=== PATIENT | male | born 1955 | race Caucasian/White ===

== ENCOUNTER → 2018-02-16 10:07 | Outpatient (REF) | payer MEDICARE, SELFPAY ==
[2018-02-16 13:58] LABS: Amphetamine/Metha Screen,Urine Negative ng/mL (<1000); Barbiturates Screen,Urine Negative ng/mL (<200); Benzodiazepines Screen,Urine Negative ng/mL (200); Cannabinoid Screen,Urine Positive ng/mL (<50); Cocaine Screen,Urine Negative ng/g (<300); Methadone Screen,Urine Negative ng/mL (<300); Opiate Screen,Urine Negative ng/mL (<300); Phencyclidine Screen,Urine Negative ng/mL (<25)
== END ==
LOC: LAB 10:07
PROVIDERS: Visit Provider Emergency Medicine
DX: Z79.899 Other long term (current) drug therapy (principal)
CPT/HCPCS: 80305

== ENCOUNTER → 2019-02-23 13:41 | Outpatient (CLI) | payer MEDICARE, SELFPAY ==
[2019-02-23 13:54] LABS: Basophils # 0.1 K/mm3 (0-0.2); Basophils % 1.4 % (0.1-2.0); Eosinophils # 0.4 K/mm3 (0.0-0.4); Eosinophils % 5.1 % (0.1-12.0); Hematocrit 48.8 % (42.0-52.0); Hemoglobin 16.6 g/dL (14.1-18.0); Lymphocytes % 25.2 % (10-50); Mean Corpuscular HGB Conc 33.9 g/dL (31.8-35.4); Mean Corpuscular Hemoglobin 30.4 pg (27.0-31.2); Mean Corpuscular Volume 89.6 fl (80-94); Mean Platelet Volume 7.9 fl (7.4-10.4); Monocytes # 0.4 K/mm3 (0.1-1.0); Monocytes % 5.4 % (1.7-9.3); Neutrophils % 62.9 % (37.0-80.0); Platelet Count 219 K/mm3 (142-424); Red Blood Count 5.45 M/mm3 (4.60-6.20); Red Cell Distribution Width 13.5 % (11.5-17.5); White Blood Count 7.9 K/mm3 (4.8-10.8)
[2019-02-23 14:58] LABS: Alanine Aminotransferase 33 U/L (12-78); Albumin Level 4.2 gm/dL (3.4-5.0); Albumin/Globulin Ratio 1.3 (1.1-1.8); Alkaline Phosphatase 63 U/L (46-116); Anion Gap 15.2 mEq/L (5-15); Aspartate Amino Transferase 9 U/L (15-37); Bilirubin,Total 0.6 mg/dL (0.2-1.0); Blood Urea Nitrogen 26 mg/dL (7-18); Calcium 9.7 mg/dL (8.5-10.1); Carbon Dioxide 28 mmol/L (21.0-32.0); Chloride 102 mmol/L (98-107); Chol/HDL Ratio 6.1 (1-3.5); Cholesterol 214 mg/dL (140-200); Creatinine,Serum 1.22 mg/dL (0.70-1.30); Estimated Glomerular Filt Rate 60 ml/min (>60); GFR (African American) 73 ML/MIN (>60); Globulin 3.3 gm/dl (1.3-3.2); Glucose 95 mg/dL (74-106); HDL Cholesterol 35 mg/dL (27-67); LDL Cholesterol 142 mg/dL (0-130); Potassium 4.2 mmoL/L (3.5-5.1); Sodium 141 mmol/L (136-145); T4 (Thyroxine) 10.7 ug/dl (4.7-13.3); Total Protein,Serum 7.5 gm/dL (6.4-8.2); Triglycerides 183 mg/dL (30-200); VLDL Cholesterol 37 mg/dL (0-40)
[2019-02-23 16:23] LABS: Amphetamine/Metha Screen,Urine Negative ng/mL (<1000); Barbiturates Screen,Urine Negative ng/mL (<200); Benzodiazepines Screen,Urine Negative ng/mL (<200); Cannabinoid Screen,Urine Positive ng/mL (<50); Cocaine Screen,Urine Negative ng/mL (<300); Methadone Screen,Urine Negative ng/mL (<300); Opiate Screen,Urine Negative ng/mL (<300); Phencyclidine Screen,Urine Negative ng/mL (<25)
[2019-02-24 08:20] LABS: PSA, Free 0.27 ng/mL; Prostate Specific Ag 0.7 ng/mL (0.0-4.0); Vitamin D 25 Hydroxy 54.5 ng/mL (30.0-100.0)
[2019-02-25 11:15] LABS: Creatinine, Urine 169.1 mg/dL (Not Estab.); Microalbumin, Urine 26.2 ug/mL (Not Estab.)
== END ==
PROVIDERS: Visit Provider Emergency Medicine
DX: E11.9 Type 2 diabetes mellitus without complications (principal); E78.5 Hyperlipidemia, unspecified; M51.36 Other intervertebral disc degeneration, lumbar region; R97.20 Elevated prostate specific antigen [PSA]; Z79.84 Long term (current) use of oral hypoglycemic drugs; F17.210 Nicotine dependence, cigarettes, uncomplicated
CPT/HCPCS: 80053; 80061; 80305; 82043; 82570; 82652; 83036; 84153; 84154; 84436; 84443; 85025

== ENCOUNTER → 2020-06-18 16:18 | Outpatient (CLI) | payer MEDICARE, SELFPAY ==
[2020-06-18 17:11] LABS: Microalbumin/Creatinine Ratio 29.8
[2020-06-18 17:16] LABS: Creatinine,Urine Random 160 mg/dL (Not Estab.)
[2020-06-18 18:10] LABS: Alanine Aminotransferase 20 U/L (12-78); Albumin Level 4.9 g/dl (3.5-5.0); Albumin/Globulin Ratio 1.8 (1.1-1.8); Alkaline Phosphatase 70 U/L (38-126); Anion Gap 17.2 mEq/L (5-15); Aspartate Amino Transferase 21 U/L (17-59); Bilirubin,Total 0.9 mg/dl (0.2-1.3); Blood Urea Nitrogen 14 mg/dl (9-20); Carbon Dioxide 32 mmol/L (22.0-30.0); Chloride 95 mmol/L (98-107); Estimated Glomerular Filt Rate 75 ml/min (>60); GFR (African American) 91 ML/MIN (>60); Globulin 2.8 g/dL (1.3-3.2); Glucose 105 mg/dl (74-100); Potassium 4.2 mmoL/L (3.5-5.1); Sodium 140 mmol/L (136-145); Total Protein,Serum 7.7 g/dl (6.3-8.2)
== END ==
PROVIDERS: Visit Provider Emergency Medicine
DX: E11.9 Type 2 diabetes mellitus without complications (principal); Z79.84 Long term (current) use of oral hypoglycemic drugs
CPT/HCPCS: 80053; 82043; 82570; 83036

== ENCOUNTER → 2020-10-23 10:01 | Outpatient (CLI) | payer MEDICARE, SELFPAY | PROVIDERS: PCP Emergency Medicine; Visit Provider Urology | DX: E78.5 Hyperlipidemia, unspecified (principal); I10 Essential (primary) hypertension; R00.1 Bradycardia, unspecified; R06.00 Dyspnea, unspecified; Z72.0 Tobacco use | CPT/HCPCS: 93270 ==

== ENCOUNTER → 2021-03-06 13:30 | Outpatient (CLI) | payer MEDICARE, SELFPAY ==
[2021-03-06 13:46] LABS: Basophils # 0.1 K/mm3 (0-0.2); Basophils % 1.7 % (0.1-2.0); Eosinophils # 0.4 K/mm3 (0.0-0.4); Eosinophils % 4.5 % (0.1-12.0); Hematocrit 49.4 % (42.0-52.0); Hemoglobin 16.4 g/dL (14.1-18.0); Lymphocytes # 1.9 K/mm3 (0.7-4.5); Lymphocytes % 22.7 % (10-50); Mean Corpuscular HGB Conc 33.2 g/dL (31.8-35.4); Mean Corpuscular Hemoglobin 30.3 pg (27.0-31.2); Mean Corpuscular Volume 91.4 fl (80-94); Mean Platelet Volume 8.8 fl (7.4-10.4); Monocytes # 0.5 K/mm3 (0.1-1.0); Monocytes % 5.9 % (1.7-9.3); Neutrophils # 5.4 K/mm3 (1.8-7.8); Neutrophils % 65.2 % (37.0-80.0); Platelet Count 229 K/mm3 (142-424); Red Cell Distribution Width 13.9 % (11.5-17.5); White Blood Count 8.3 K/mm3 (4.8-10.8)
[2021-03-06 14:21] LABS: Alanine Aminotransferase 18 U/L (12-78); Albumin Level 4.8 g/dl (3.5-5.0); Albumin/Globulin Ratio 1.8 (1.1-1.8); Alkaline Phosphatase 65 U/L (38-126); Anion Gap 13.2 mEq/L (5-15); Aspartate Amino Transferase 24 U/L (17-59); Bilirubin,Total 0.6 mg/dl (0.2-1.3); Blood Urea Nitrogen 19 mg/dl (9-20); Calcium 9.9 mg/dl (8.4-10.2); Carbon Dioxide 31 mmol/L (22.0-30.0); Chloride 98 mmol/L (98-107); Chol/HDL Ratio 4.7 (1-3.5); Cholesterol 216 mg/dl (140-200); Estimated Glomerular Filt Rate 97 ml/min (>60); GFR (African American) 118 ML/MIN (>60); Globulin 2.6 g/dL (1.3-3.2); Glucose 107 mg/dl (74-100); HDL Cholesterol 46 mg/dl (40-60); Potassium 4.2 mmoL/L (3.5-5.1); Sodium 138 mmol/L (136-145); Total Protein,Serum 7.4 g/dl (6.3-8.2); Triglycerides 90 mg/dl (30-150); VLDL Cholesterol 18 mg/dL (0-40)
[2021-03-06 14:33] LABS: Direct LDL Cholesterol 136.81 mg/dL (100-129)
[2021-03-06 14:38] LABS: Free T4 (Free Thyroxine) 1.39 ng/dl (0.78-2.19)
[2021-03-06 14:53] LABS: Prostate Specific Ag Screen 0.8 ng/ml (0.0-4.0); Thyroid Stimulating Hormone 0.51 uIU/mL (0.465-4.68)
== END ==
PROVIDERS: Visit Provider Emergency Medicine
DX: E11.9 Type 2 diabetes mellitus without complications (principal); Z12.5 Encounter for screening for malignant neoplasm of prostate; Z79.84 Long term (current) use of oral hypoglycemic drugs; Z79.899 Other long term (current) drug therapy
CPT/HCPCS: 80053; 80061; 84439; 84443; 85025; G0103

== ENCOUNTER → 2022-03-20 08:06 | Outpatient (CLI) | payer MEDICARE, OTHER, SELFPAY ==
--- NOTE | 2022-03-20 08:09 | MR_ITS ---
FINAL REPORT CLINICAL HISTORY: neck pain. bilateral arm and hand numbness, pain and tingling. symptoms xyears. no recent injury or trauma. headache. FINDINGS: Multiplanar MR imaging of the cervical spine was performed without contrast. On the sagittal T2-weighted images, disc degeneration is seen throughout. There is no evidence of fracture. There is mild retrolisthesis of C4 on C5. The cervical spinal cord has an unremarkable appearance without evidence of mass, edema or syrinx. No significant canal stenosis is identified. The cervicomedullary junction is normal. C2-3: There is a small central disc protrusion. There is no significant canal stenosis or neural foraminal narrowing. C3-4: There are small uncovertebral osteophytes with a small central disc protrusion. There is no significant canal stenosis or neural foraminal narrowing. C4-5: There is a disc osteophyte complex with mild left neural foraminal narrowing. C5-6: There is a disc osteophyte complex. There is no significant canal stenosis or neural foraminal narrowing. C6-7: There is a disc osteophyte complex. There is no significant canal stenosis or neural foraminal narrowing. C7-T1: There is no significant canal stenosis or neural foraminal narrowing. IMPRESSION: Multilevel degenerative disc disease with mild left C4-C5 neural foraminal narrowing. Disc protrusions at C2-C3 and C3-C4 without significant central canal stenosis. Reviewed, Interpreted and Dictated by Win Pereyra III, MD Transcribed by Anthony Alvarez Authenticated by Win Pereyra III, MD on 03/20/2022 10:20:22 AM [facility]
== END ==
PROVIDERS: PCP Emergency Medicine; Visit Provider Emergency Medicine
DX: M54.2 Cervicalgia (principal)
CPT/HCPCS: 72141; 76376

== ENCOUNTER → 2022-05-07 16:30 | Outpatient (CLI) | payer MEDICARE, OTHER, SELFPAY ==
[2022-05-07 14:03] LABS: Barbiturates Screen,Urine Negative ng/ml (<200)
[2022-05-07 14:04] LABS: Amphetamine/Metha Screen,Urine Negative ng/ml (<1000); Benzodiazepines Screen,Urine Negative ng/ml (<200)
[2022-05-07 14:05] LABS: Methadone Screen,Urine Negative ng/ml (<300)
[2022-05-07 14:06] LABS: Cannabinoid Screen,Urine Positive ng/ml (<50); Cocaine Screen,Urine Negative ng/ml (<300)
[2022-05-07 14:07] LABS: Opiate Screen,Urine Negative ng/ml (<300); Phencyclidine Screen,Urine Negative ng/ml (<25)
== END ==
PROVIDERS: Visit Provider Emergency Medicine
DX: Z79.899 Other long term (current) drug therapy (principal)
CPT/HCPCS: 80305

== ENCOUNTER → 2022-08-06 09:14 | Outpatient (CLI) | payer MEDICARE, OTHER, SELFPAY ==
[2022-08-06 10:16] LABS: Basophils # 0.1 K/mm3 (0-0.2); Basophils % 1.4 % (0.1-2.0); Eosinophils # 0.3 K/mm3 (0.0-0.4); Eosinophils % 3.9 % (0.1-12.0); Hemoglobin 15.9 g/dL (14.1-18.0); Lymphocytes # 1.7 K/mm3 (0.7-4.5); Lymphocytes % 19.8 % (10-50); Mean Corpuscular HGB Conc 31.9 g/dL (31.8-35.4); Mean Corpuscular Hemoglobin 29.9 pg (27.0-31.2); Mean Corpuscular Volume 93.6 fl (80-94); Mean Platelet Volume 8.1 fl (7.4-10.4); Monocytes # 0.4 K/mm3 (0.1-1.0); Monocytes % 4.2 % (1.7-9.3); Neutrophils # 6.1 K/mm3 (1.8-7.8); Neutrophils % 70.8 % (37.0-80.0); Platelet Count 276 K/mm3 (142-424); Red Blood Count 5.34 M/mm3 (4.60-6.20); Red Cell Distribution Width 13.9 % (11.5-17.5); White Blood Count 8.6 K/mm3 (4.8-10.8)
[2022-08-06 10:28] LABS: Alanine Aminotransferase 21 U/L (12-78); Albumin Level 4.3 g/dl (3.5-5.0); Albumin/Globulin Ratio 1.8 (1.1-1.8); Alkaline Phosphatase 70 U/L (38-126); Anion Gap 13.6 mEq/L (5-15); Aspartate Amino Transferase 24 U/L (17-59); Bilirubin,Total 0.4 mg/dl (0.2-1.3); Blood Urea Nitrogen 15 mg/dl (9-20); Calcium 9.2 mg/dl (8.4-10.2); Carbon Dioxide 34 mmol/L (22.0-30.0); Chloride 97 mmol/L (98-107); Chol/HDL Ratio 3.2 (1-3.5); Cholesterol 140 mg/dl (140-200); Estimated Glomerular Filt Rate 84 ml/min (>60); GFR (African American) 102 ML/MIN (>60); Globulin 2.4 g/dL (1.3-3.2); Glucose 129 mg/dl (74-100); HDL Cholesterol 44 mg/dl (40-60); Potassium 4.6 mmoL/L (3.5-5.1); Sodium 140 mmol/L (136-145); Total Protein,Serum 6.7 g/dl (6.3-8.2); Triglycerides 91 mg/dl (30-150); VLDL Cholesterol 18 mg/dL (0-40)
[2022-08-06 10:39] LABS: Direct LDL Cholesterol 80.44 mg/dL (100-129)
[2022-08-06 10:44] LABS: Erythrocyte Sedimentation Rate 8 mm/hr (0-20)
[2022-08-06 10:45] LABS: Free T4 (Free Thyroxine) 1.14 ng/dl (0.78-2.19)
[2022-08-06 10:59] LABS: Prostate Specific Ag Screen 0.7 ng/ml (0.0-4.0); Thyroid Stimulating Hormone 0.62 uIU/mL (0.465-4.68)
[2022-08-06 11:20] LABS: Hemoglobin A1C 6.2 % (4.0-6.0)
[2022-08-06 11:36] LABS: Vitamin B12 798 pg/mL (239-931)
[2022-08-09 18:25] LABS: Antinuclear Antibodies (ANA) Negative
== END ==
PROVIDERS: PCP Emergency Medicine; Visit Provider Specialist
DX: E66.9 Obesity, unspecified (principal); Z79.899 Other long term (current) drug therapy; Z12.5 Encounter for screening for malignant neoplasm of prostate; R41.3 Other amnesia; Z68.29 Body mass index [BMI] 29.0-29.9, adult
CPT/HCPCS: 36415; 80053; 80061; 82607; 82746; 83036; 84439; 84443; 85025; 85651; 86038; G0103

== ENCOUNTER → 2022-08-12 07:23 | Outpatient (CLI) | payer MEDICARE, OTHER, SELFPAY ==
--- NOTE | 2022-08-12 07:31 | MR_ITS ---
FINAL REPORT CLINICAL HISTORY: Memory loss, HEADACHE AND DIZZINESS. NO INJURY OR TRAUMA. FINDINGS: Multiplanar MR imaging of the brain was performed without contrast. There is mild age-appropriate atrophy. There are scattered foci of increased T2 signal in the cerebral white matter that have a nonspecific appearance but likely represent mild chronic ischemic/gliotic changes. There is no evidence of intracranial hemorrhage or mass. No abnormal ventricular dilatation is identified. No abnormal extra-axial fluid collection is seen. No abnormality is seen on the diffusion weighted images. The posterior fossa and brainstem are unremarkable. Normal major vessel vascular flow voids are seen. There is mucosal thickening and multiple sinuses. IMPRESSION: Age-appropriate atrophy and mild chronic ischemic/gliotic changes. No acute intracranial abnormality. Reviewed, Interpreted and Dictated by Win Pereyra III, MD Transcribed by Danielle Ojeda Authenticated and [facility]
== END ==
PROVIDERS: PCP Emergency Medicine; Visit Provider Specialist
DX: R41.3 Other amnesia (principal)
CPT/HCPCS: 70551

== ENCOUNTER → 2022-08-26 10:27 | Outpatient (CLI) | payer MEDICARE, OTHER, SELFPAY | PROVIDERS: PCP Emergency Medicine; Visit Provider Specialist | DX: R06.83 Snoring; G47.30 Sleep apnea, unspecified | CPT/HCPCS: G0399 ==

== ENCOUNTER → 2023-03-02 14:14 | Outpatient (CLI) | payer MEDICARE, OTHER, SELFPAY ==
[2023-03-02 14:19] LABS: Basophils # 0.1 K/mm3 (0-0.2); Eosinophils # 0.4 K/mm3 (0.0-0.4); Eosinophils % 3.5 % (0.1-12.0); Hematocrit 49.7 % (42.0-52.0); Hemoglobin 16.3 g/dL (14.1-18.0); Lymphocytes % 19.9 % (10-50); Mean Corpuscular HGB Conc 32.8 g/dL (31.8-35.4); Mean Corpuscular Volume 94.6 fl (80-94); Mean Platelet Volume 8.7 fl (7.4-10.4); Monocytes # 0.5 K/mm3 (0.1-1.0); Neutrophils # 7.2 K/mm3 (1.8-7.8); Neutrophils % 70.7 % (37.0-80.0); Platelet Count 228 K/mm3 (142-424); Red Blood Count 5.26 M/mm3 (4.60-6.20); Red Cell Distribution Width 13.6 % (11.5-17.5); White Blood Count 10.2 K/mm3 (4.8-10.8)
[2023-03-02 14:30] LABS: Alanine Aminotransferase 23 U/L (12-78); Albumin Level 4.6 g/dl (3.5-5.0); Albumin/Globulin Ratio 1.8 (1.1-1.8); Alkaline Phosphatase 75 U/L (38-126); Anion Gap 13.7 mEq/L (5-15); Aspartate Amino Transferase 25 U/L (17-59); Bilirubin,Total 0.6 mg/dl (0.2-1.3); Blood Urea Nitrogen 17 mg/dl (9-20); Calcium 9.2 mg/dl (8.4-10.2); Carbon Dioxide 32 mmol/L (22.0-30.0); Chloride 100 mmol/L (98-107); Chol/HDL Ratio 2.9 (1-3.5); Cholesterol 142 mg/dl (140-200); Estimated Glomerular Filt Rate 84 ml/min (>60); GFR (African American) 102 ML/MIN (>60); Globulin 2.5 g/dL (1.3-3.2); Glucose 128 mg/dl (74-100); HDL Cholesterol 49 mg/dl (40-60); Potassium 4.7 mmoL/L (3.5-5.1); Sodium 141 mmol/L (136-145); Total Protein,Serum 7.1 g/dl (6.3-8.2); Triglycerides 110 mg/dl (30-150); VLDL Cholesterol 22 mg/dL (0-40)
[2023-03-02 14:41] LABS: Direct LDL Cholesterol 71.93 mg/dL (100-129)
[2023-03-02 14:48] LABS: Free T4 (Free Thyroxine) 1.35 ng/dl (0.78-2.19)
[2023-03-02 15:03] LABS: Thyroid Stimulating Hormone 0.45 uIU/mL (0.465-4.68)
[2023-03-02 15:54] LABS: Hemoglobin A1C 6.3 % (4.0-6.0)
[2023-03-03 12:12] LABS: Testosterone,Total 506 ng/dL (264-916)
== END ==
PROVIDERS: PCP Emergency Medicine; Visit Provider Emergency Medicine
DX: E11.9 Type 2 diabetes mellitus without complications (principal); S30.1XXA Contusion of abdominal wall, initial encounter; Z79.84 Long term (current) use of oral hypoglycemic drugs
CPT/HCPCS: 80053; 80061; 83036; 84403; 84439; 84443; 85025

== ENCOUNTER → 2023-06-30 07:43 | Outpatient (CLI) | payer SELFPAY ==
--- NOTE | 2023-06-30 07:43 | CT_ITS ---
APPROVED REPORT Geophysical Laboratory Supervisor: CLINICAL INDICATION Chest Pain TECHNIQUE Image Acquisition: A 128 slice MDCT scanner (Rock Flow Dynamicsa View) was used for data acquisition. A noncontrast coronary calcium scan was performed. A tube voltage of 120 KVp was used. The patient received no medications prior to the coronary calcium CT. Image Reconstruction Transaxial images were reconstructed at 0.67 mm slide thickness. Data was reviewed interactively on an advanced workstation capable of 2 and 3-dimensional displays in all conventional reconstruction formats, including multiplanar reformations, maximum intensity projections, curved multiplanar reformations, and volume rendered reconstructions. When applicable, selected routine images describing the relevant coronary anatomy and pathology were saved and sent to PACS. Complications None Technical Quality Overall image quality was good. Total DLP (Dose-Length Product) is 179.89 mGy-cm. The reported value represents the total of one or more individual components during the CT acquisition of this date and at this time, and as such, the same value may appear in more than one CT report depending on the interpreting/reporting physicians. COMPARISON None FINDINGS CT Coronary Calcium Scoring LMA (Left Main Artery) = 0 LAD (Left Anterior Descending) = 54 LCX (Left Coronary Circumflex) = 4 RCA (Right Coronary Artery) = 477 Total Calcium Score = 535 using the AJ-130 method. There is identifiable calcification in the aortic root and the mitral annulus of the posterior mitral valve leaflet, but not the aortic valve, mitral valve, pericardium, or myocardium. IMPRESSION -Coronary artery calcification is present. -Total Calcium Score (Agatston Score) = 535 using the AJ-130 method. -According to The Multi-Ethnic Study of Atherosclerosis (BANERJEE) Coronary Artery Calcium (CAC) risk, the estimated probability of a non-zero calcium score for an individual of your ethnicity and age is 78%. The observed calcium score of 535 is at 82 percentile for subjects of the same age, sex, and race/ethnicity who are free of clinical cardiovascular disease and treated diabetes. The interpretation of the calcium heart score is based on the following continuum*: 0 = no calcified plaque detected (risk of coronary artery disease is very low ??? less than 5%) 1-10 = calcium detected in extremely minimal levels (risk of coronary diseases is still low ??? less than 10%) 11-100 = mild levels of plaque detected with certainty (minimal narrowing of heart arteries is likely) 101-300 = moderate levels of plaque detected (relatively high risk of a heart attack within 3-5 years) 300-400 = extensive levels of plaque detected (very high risk of heart attack, high levels of vascular disease are present) *The calcium heart score quantifies the burden of coronary calcification/plaque in the coronary arteries. The calcium heart score is not able to evaluate the presence or burden of non-calcified (i.e. soft) plaque. CRITICAL RESULT None COMMUNICATION Per this written report The coronary and cardiac findings of this Coronary Calcium CT were reviewed, reported, and signed by Shun Gonzalez MD (Grain Mixer). Conclusion Electronically signed by : Ena Gonzalez, 07/01/2023 10:35:42
== END ==
PROVIDERS: PCP Emergency Medicine; Visit Provider Emergency Medicine
DX: Z13.6 Encounter for screening for cardiovascular disorders (principal); R06.00 Dyspnea, unspecified; I10 Essential (primary) hypertension; E11.9 Type 2 diabetes mellitus without complications; E78.5 Hyperlipidemia, unspecified; Z82.49 Family history of ischemic heart disease and other diseases of the circulatory system; Z79.84 Long term (current) use of oral hypoglycemic drugs
CPT/HCPCS: 75571

== ENCOUNTER → 2023-08-24 06:20 | Outpatient (CLI) | payer MEDICARE, OTHER, SELFPAY ==
--- NOTE | 2023-08-24 07:20 | NM_ITS ---
APPROVED REPORT Exam: Nuclear Stress Test Indication: DYSRHYTHMIA, HTN, DM, TOB USE, FM HX, SOB Patient Location: Outpatient Stress Tech: Rachel Sparks [place] Tech:Justine Vences BERNARDINOKym RT (R)(N)(M) Ht: 6 ft 3 in Wt: 218 lbs HR: 60 bpm BP: 166/83 mmHg BSA: 2.28 m2 Rhythm: NSR TID: 1.13 BMI: 27.2 History: DYSRHYTHMIA, HTN, DM, TOB USE, FM HX, SOB Procedure: Patient received 0.4 mg of intravenous Lexiscan, resting heart rate 60 bpm, resting blood pressure 166/83 mmHg, with Lexiscan maximum heart rate achieved was 87 bpm which is % of the maximum predicted heart rate and blood pressure was 165/92 mmHg. With Lexiscan, patient denied any complaint of chest pain. Cardiac Stress and Resting SPECT Images: Cardiac Stress and Resting SPECT images were obtained using technetium 99m Myoview 31.8 mCi stress and 10.46 mCi at rest. Resting and stress imaging in supine and prone positions demonstrate a large sized, moderate, fixed perfusion defect in the inferior, lateral, and inferolateral LV patel of the base and extending towards the inferoapical region. Gated imaging demonstrates moderate reduction in global LV systolic function. There is akinesis of the inferior LV wall. LVEF is calculated at 34%. Conclusion: Large sized, moderate, fixed perfusion defect in the inferior, lateral, and inferolateral LV patel of the base and extending towards the inferoapical region. No evidence of reversible ischemia. Gated imaging demonstrates moderate reduction in global LV systolic function. There is akinesis of the inferior LV wall. LVEF is calculated at 34%. Electronically signed by : Ena Gonzalez MD 08/29/2023 22:34:27
--- NOTE | 2023-08-24 09:38 | CA_ITS ---
APPROVED REPORT Exam: Pharmacologic Technologist: Rachel Sparks Ht: 6 ft 3 in Wt: 225 lbs BSA: 2.31 m2 HR: 60 bpm BP: 166/83 mmHg Indications: Dyspnea Medical History Medications: Amlodipine,,,,, Metformin,,,,, Losartan HCTZ,,,,, Garlic,,,,, OmeGA3,,,,, PEntazocine-Naloxone,,,,, Stress Test Details Test: LEXISCAN HR Resting HR: 59 bpm Max Heart Rate (APMHR): 153 bpm Max HR Achieved: 91 bpm Target HR (85% APMHR): 130 bpm % of APMHR: 59 Recovery HR: 81 bpm BP Resting BP: 166.0/83.0 mmHg Max BP: 166.0/83.0 mmHg Recovery BP: 147.0/83.0 mmHg ECG Resting ECG: Sinus rhythm, nonspecific ST changes in inferior lateral leads Stress ECG: No change Arrhythmia: PVCs Clinical Exercise duration: 04:06 min Highest Stage Achieved: Exercise capacity: 1.0 METs Stress ECG Conclusion Symptoms: Nausea Arrhythmias/Ectopy: PVC's ST-T Changes: No significant ST changes Conclusion: Nondiagnostic Lexiscan stress test due to baseline abnormalities. Myoview images are reported separately. Test Summary REST 14:51 . . 59 . 166/ 83 . . Stage 1 . . . . . . . Myoview Injected Stage 1 01:00 . . 86 . . . . Stage 2 01:00 . . 89 . . . . Stage 3 01:00 . . 83 . 165/ 92 . . Stage 4 01:00 . . 82 . 161/ 95 . . Stage 4 01:06 . . 81 . 161/ 95 . Stop exercise at 04:06 RECOVERY 01:00 . . 75 . 150/ 89 . . RECOVERY 02:00 . . 80 . 147/ 83 . . RECOVERY 02:29 . . 81 . 147/ 83 . . Electronically signed by : Ena Gonzalez MD 08/29/2023 22:31:44
== END ==
PROVIDERS: PCP Emergency Medicine; Visit Provider Nurse Practitioner
DX: R07.9 Chest pain, unspecified (principal); R06.00 Dyspnea, unspecified; E78.5 Hyperlipidemia, unspecified; I10 Essential (primary) hypertension; R00.1 Bradycardia, unspecified; R94.31 Abnormal electrocardiogram [ECG] [EKG]; R93.1 Abnormal findings on diagnostic imaging of heart and coronary circulation; Z72.0 Tobacco use
CPT/HCPCS: 78452; 93017; A9502; J2785

== ENCOUNTER → 2023-09-02 09:25 | Outpatient (CLI) | payer MEDICARE, OTHER, SELFPAY ==
--- NOTE | 2023-09-02 09:28 | CA_ITS ---
APPROVED REPORT EXAM: Comprehensive 2D, Doppler, and color-flow Echocardiogram V Belt Inspector: Desiree Evans RVT Ht: 6 ft 3 in Wt: 225lbs BSA: 2.31 BP: 148/87 mmHg Indications: BRADYCARDIA,SMOKER,HTN,EDEMA,HLD 2D Dimensions LVOT 2.55 cm (M/F) 1.5-2.5 LA Volume 62.70 mL LA Volume Index 27.14 mL/m2 (M/F) 16-34 M-Mode Dimensions RVDd 2.48 cm (0.9-2.6) LA Diam 3.24 cm (1.9-4.0) LVDd 4.75 cm (3.5-5.7) Ao Diam 4.29 cm (2.0-3.7) LVDs 3.47 cm (3.5-5.7) IVSd 1.01 cm (0.6-1.1) PWd 0.70 cm (0.6-1.1) EF (Teich) 52.50% FS 26.90% EDV (Teich) 104.90 mL TAPSE 2.60 (<1.7) ESV (Teich) 49.80 mL LV Diastology E Decel Time 200.00 (160-240 msec) E/A Ratio 0.8 MED E' 5.60 (< 7 cm/sec) E'/MED E' Ratio 13.64 (>14) LAT E' 5.80 (<10 cm/sec) E/LAT E' Ratio 13.17 (>14) Aortic Valve AI PHT 1395.00 ms AO Peak GR. 4.60 mmHg Mitral Valve MV E Max Eduin. 76.00 (40-130 cm/s) MV A Velocity 93.00 (40-130 cm/s) E/A Ratio 0.82 MV Decel. Time 200.00 (160-240 ms) MV PHT 59.00 ms Pulmonary Valve PV Peak Velocity 55.00 (50-150 cm/s) Tricuspid Valve TR P. Velocity 251.00 cm/s RAP Estimate 10.00 mmHg RVSP 35.20 mmHg Left Ventricle The left ventricle is normal size. Left ventricular systolic function is mildly decreased. There is increased LV wall thickness. There is mild global hypokinesis. Transmitral Doppler flow pattern suggests impaired LV relaxation. LVEF is 40-45%. Right Ventricle The right ventricle is mildly dilated. Right ventricle is mildly hypokinetic. There is increased RV wall thickness. Atria The left atrium size is normal. The right atrium size is normal. There is no Doppler evidence of interatrial shunt. Aortic Valve The aortic valve is mildly thickened. There is no aortic valvular stenosis. Mild aortic regurgitation. Mitral Valve The mitral valve leaflets are mildly thickened. No evidence of mitral valve stenosis. Trace mitral regurgitation. Tricuspid Valve The tricuspid valve leaflets are thin and pliable. Trace tricuspid regurgitation. There is insufficient TR jet to estimate RVSP. Pulmonic Valve The pulmonary valve is normal in structure. Trace pulmonic regurgitation. Great Vessels The aortic root is normal in size. The ascending aorta is normal in size. IVC is normal in size and collapses >50% with inspiration. Pericardium There is no pericardial effusion. Other Information Study Quality: Fair Conclusion Mild reduction in LV systolic function (LVEF 40-45%) Mild RV dilation with mild reduction in RV systolic function. Mild AI. Electronically signed by : Ena Gonzalez MD 09/02/2023 21:25:13
== END ==
PROVIDERS: PCP Emergency Medicine; Visit Provider Physician Assistant
DX: E78.5 Hyperlipidemia, unspecified (principal); I10 Essential (primary) hypertension; R00.1 Bradycardia, unspecified; R06.00 Dyspnea, unspecified; R93.1 Abnormal findings on diagnostic imaging of heart and coronary circulation; R94.31 Abnormal electrocardiogram [ECG] [EKG]; Z72.0 Tobacco use
CPT/HCPCS: 93306

== ENCOUNTER 2024-03-09 18:00 | Outpatient (CLI) | payer MEDICARE, OTHER, SELFPAY ==
[2024-03-09 19:03] LABS: Basophils # 0.1 K/mm3 (0-0.2); Basophils % 1.2 % (0.1-2.0); Eosinophils # 0.3 K/mm3 (0.0-0.4); Eosinophils % 3.2 % (0.1-12.0); Hematocrit 52.3 % (42.0-52.0); Hemoglobin 16.8 g/dL (14.1-18.0); Lymphocytes # 1.7 K/mm3 (0.7-4.5); Lymphocytes % 22.6 % (10-50); Mean Corpuscular HGB Conc 32.1 g/dL (31.8-35.4); Mean Corpuscular Hemoglobin 31.1 pg (27.0-31.2); Mean Corpuscular Volume 96.8 fl (80-94); Mean Platelet Volume 9.4 fl (7.4-10.4); Monocytes # 0.4 K/mm3 (0.1-1.0); Monocytes % 4.7 % (1.7-9.3); Neutrophils # 5.3 K/mm3 (1.8-7.8); Neutrophils % 68.3 % (37.0-80.0); Platelet Count 189 K/mm3 (142-424); Red Blood Count 5.41 M/mm3 (4.60-6.20); Red Cell Distribution Width 14.2 % (11.5-17.5); White Blood Count 7.7 K/mm3 (4.8-10.8)
[2024-03-09 19:47] LABS: 25-OH Vitamin D, Total 65.2 ng/mL (30-100)
[2024-03-09 19:49] LABS: Alanine Aminotransferase 23 U/L (12-78); Albumin Level 4.6 g/dl (3.5-5.0); Albumin/Globulin Ratio 1.8 (1.1-1.8); Alkaline Phosphatase 78 U/L (38-126); Aspartate Amino Transferase 25 U/L (17-59); Bilirubin,Total 0.9 mg/dl (0.2-1.3); Blood Urea Nitrogen 13 mg/dl (9-20); Calcium 9.8 mg/dl (8.4-10.2); Carbon Dioxide 31 mmol/L (22.0-30.0); Chloride 101 mmol/L (98-107); Chol/HDL Ratio 3.7 (1-3.5); Cholesterol 219 mg/dl (140-200); Estimated Glomerular Filt Rate 96 ml/min (>60); GFR (African American) 117 ML/MIN (>60); Globulin 2.6 g/dL (1.3-3.2); Glucose 115 mg/dl (74-100); HDL Cholesterol 60 mg/dl (40-60); Sodium 140 mmol/L (136-145); Total Protein,Serum 7.2 g/dl (6.3-8.2); Triglycerides 125 mg/dl (30-150); VLDL Cholesterol 25 mg/dL (0-40)
[2024-03-09 20:02] LABS: Direct LDL Cholesterol 133.94 mg/dL (100-129)
[2024-03-09 20:20] LABS: Hemoglobin A1C 6.6 % (4.0-6.0)
[2024-03-09 20:21] LABS: Prostate Specific Ag Screen 0.8 ng/ml (0.0-4.0); Thyroid Stimulating Hormone 0.73 uIU/mL (0.465-4.68)
[2024-03-09 20:40] LABS: Vitamin B12 717 pg/mL (239-931)
== END 2024-03-09 23:59 | disposition home or self-care (01) ==
LOC: LAB.DROPOF 03-10 08:44
PROVIDERS: PCP Internal Medicine; Visit Provider Internal Medicine
DX: R53.83 Other fatigue (principal); E78.5 Hyperlipidemia, unspecified; E55.9 Vitamin D deficiency, unspecified; E53.8 Deficiency of other specified B group vitamins; R73.09 Other abnormal glucose; Z12.5 Encounter for screening for malignant neoplasm of prostate; Z68.28 Body mass index [BMI] 28.0-28.9, adult
CPT/HCPCS: 80053; 80061; 82306; 82607; 83036; 84443; 85025; G0103

== ENCOUNTER 2024-04-05 19:06 | Outpatient (CLI) | payer MEDICARE, OTHER, SELFPAY ==
[2024-04-05 19:57] LABS: Creatinine,Urine Random 86 mg/dL (Not Estab.)
== END 2024-04-05 23:59 | disposition home or self-care (01) ==
LOC: LAB.DROPOF 19:21
PROVIDERS: PCP Internal Medicine; Visit Provider Internal Medicine
DX: E11.42 Type 2 diabetes mellitus with diabetic polyneuropathy (principal); Z79.899 Other long term (current) drug therapy
CPT/HCPCS: 82043; 82570

== ENCOUNTER 2025-02-28 10:09 | Outpatient (CLI) | payer MEDICARE, OTHER, SELFPAY ==
[2025-02-28 18:48] LABS: Basophils # 0.1 K/mm3 (0-0.2); Basophils % 1.2 % (0.1-2.0); Eosinophils # 0.2 Kmm3 (0.0-0.4); Eosinophils % 2.3 % (0.1-12.0); Hematocrit 50.1 % (42.0-52.0); Hemoglobin 17.3 g/dL (14.1-18.0); Lymphocytes # 1.7 K/mm3 (0.7-4.5); Lymphocytes % 19.6 % (10-50); Mean Corpuscular HGB Conc 34.5 g/dL (31.8-35.4); Mean Corpuscular Hemoglobin 31.3 pg (27.0-31.2); Mean Corpuscular Volume 90.6 fl (80-94); Mean Platelet Volume 9.3 fl (7.4-10.4); Monocytes # 0.5 K/mm3 (0.1-1.0); Neutrophils # 6.1 K/mm3 (1.8-7.8); Neutrophils % 70.6 % (37.0-80.0); Nucleated Red Blood Cells # 0 10^3/uL; Nucleated Red Blood Cells % 0 %; Platelet Count 272 K/mm3 (142-424); Red Blood Count 5.53 M/mm3 (4.60-6.20); Red Cell Distribution Width 13.2 % (11.5-17.5); Red Cell Distribution Width-SD 43.8 fL; White Blood Count 8.7 K/mm3 (4.8-10.8)
[2025-02-28 21:20] LABS: Albumin Level 4.6 g/dl (3.5-5.0); Chloride 98 mmol/L (98-107); Potassium 4.2 mmoL/L (3.5-5.1); Sodium 138 mmol/L (136-145)
[2025-02-28 21:23] LABS: Alanine Aminotransferase 23 U/L (12-78); Albumin/Globulin Ratio 1.6 (1.1-1.8); Alkaline Phosphatase 90 U/L (38-126); Anion Gap 14.2 mEq/L (5-15); Aspartate Amino Transferase 26 U/L (17-59); Bilirubin,Total 0.6 mg/dl (0.2-1.3); Blood Urea Nitrogen 12 mg/dl (9-20); Calcium 9.6 mg/dl (8.4-10.2); Carbon Dioxide 30 mmol/L (22.0-30.0); Chol/HDL Ratio 4.2 (1-3.5); Cholesterol 216 mg/dl (140-200); Estimated Glomerular Filt Rate 84 ml/min (>60); GFR (African American) 102 ML/MIN (>60); Globulin 2.9 g/dL (1.3-3.2); Glucose 128 mg/dl (74-100); HDL Cholesterol 51 mg/dl (40-60); Total Protein,Serum 7.5 g/dl (6.3-8.2); Triglycerides 155 mg/dl (30-150); VLDL Cholesterol 31 mg/dL (0-40)
[2025-02-28 21:35] LABS: Direct LDL Cholesterol 124.05 mg/dL (100-129)
[2025-02-28 21:36] LABS: Creatinine,Urine Random 85 mg/dL (Not Estab.); Microalbumin/Creatinine Ratio 20.2
[2025-02-28 21:37] LABS: 25-OH Vitamin D, Total 108 ng/mL (30-100)
[2025-02-28 21:48] LABS: Thyroid Stimulating Hormone 0.47 uIU/mL (0.465-4.68)
[2025-02-28 22:05] LABS: Hepatitis C Ab Qual. W/ RFX NEGATIVE (Negative)
[2025-02-28 23:36] LABS: Hemoglobin A1C 6.4 % (4.0-6.0)
[2025-03-02 11:06] LABS: HIV Combo NEGATIVE (Negative)
== END 2025-02-28 23:59 | disposition home or self-care (01) ==
LOC: LAB.DROPOF 03-01 10:00
PROVIDERS: PCP Nurse Practitioner Family; Visit Provider Nurse Practitioner Family
DX: E11.42 Type 2 diabetes mellitus with diabetic polyneuropathy (principal); E55.9 Vitamin D deficiency, unspecified; Z11.59 Encounter for screening for other viral diseases
CPT/HCPCS: 80053; 80061; 82043; 82306; 82570; 83036; 84443; 85025; 86803; 87389

== ENCOUNTER 2025-09-18 16:43 | Outpatient (CLI) | payer MEDICARE, OTHER, SELFPAY ==
--- OUTSIDE RECORDS SUMMARY | 2024-07-28 04:45 | XMS_ITS ---
Author Organization [facility] Address [address] [place] [address] Care Team Providers Care Publications Manager Name Role Phone Ruth Milner Unavailable [phone] REASON FOR VISIT 3mo ak Encounters Encounter Location Date Provider Diagnosis [facility] [address] [address] 07/28/2024 Ruth Milner Plan Of Treatment No Information Progress Notes * Nir KRAUSEDOB: [birth year] (70 yo M)Acc No.[id number]:07/28/2024 Progress Notes Patient: Nir Tom Provider: Alexandra Milner PA-C :1955 A ge:69 Y S ex:Male Date:07/28/2024 Address:[id number] [place] [address], [id number] Patient's Default Facility:[facility] Subjective: * Chief Complaints: * 3 mo ak Billing Information: * Procedure Codes: * Electronic signature of Renate Milner PA-C on 09/19/2025 at 03:46 PM MARKETING TECHNOLOGY SPECIALIST Sign off status: Pending * Provider: Alexandra Milner PA-C Date: 0 07/28/2024 Generated for Printi ng/Faxing/eTransmitting on: 1 11/19/2024 03:46 PM MARKETING TECHNOLOGY SPECIALIST
--- OUTSIDE RECORDS SUMMARY | 2024-08-16 04:00 | XMS_ITS ---
Author Organization [facility] Address [address] [place] [address] Care Team Providers Care Padding Machine Operator Name Role Phone Ruth iMlner Unavailable [phone] REASON FOR VISIT pdt Medications Medication SIG (Take, Route, Fr equency, Duration) Notes Start Date End Date Status amLODIPine Active losartan Active chlorthalidone Activ e urea topical 40% cream 1 jennifer applied top ically to arms and scalp once a day; Duration: 30 days 04/20/2024 Active Encounters Encounter Location Date Provider Diagnosis [facility] [address] [address] 08/16/2024 Ruth Milner Plan Of Treatment No Information Progress Notes * Nir KRAUSEDOB: [birth year] (70 yo M)Acc No.[id number]:08/16/2024 Patient: Stephanie Nir serna Provider: Alexandra Milner PA-C :1955 A ge:69 Y S ex:Male Date:08/16/2024 Address: [facility] [facility] [address], [place], [place] Patient's Default Facility:[facility] Subjective: * Chief Complaints: * P dt * Medications: T akingchlorthalidone losartan amLODIPine urea topical 40% cream 1 jennifer applied topically to arms and scalp once a day Taking chlorthalidone Taking losartan Taking amLODIPine Taking urea topical 40% cream 1 jennifer applied topically to arms and scalp once a day Billing Information: * Procedure Codes: * Electronic signature of Renate Milner PA-C on 09/19/2025 at 03:46 PM SPORTS MEDICINE MASSEUR Sign off status: Pending * Provider: Alexandra Milner PA-C Date: Generated for Sofy griggs/Ashley/Jh on: 11/19/2024 03:46 PM SPORTS MEDICINE MASSEUR
--- OUTSIDE RECORDS SUMMARY | 2024-10-20 04:30 | XMS_ITS ---
Author Organization [facility] Address [address] [place] [address] Care Team Providers Care Insulation Hoseman Name Role Phone Ruth Milner Unavailable [phone] REASON FOR VISIT 6mo efudex Encounters Encounter Location Date Provider Diagnosis [facility] [address] [address] 10/20/2024 Ruth Milner Plan Of Treatment No Information Progress Notes * Nir KRAUSEDOB: [birth year] (70 yo M)Acc No.[id number]:10/20/2024 Progress Notes Patient: Nir Tom Provider: Alexandra Milner PA-C :1955 A ge:69 Y S ex:Male Date:10/20/2024 Address: [id number] Patient's Default Facility:[facility] Subjective: * Chief Complaints: * 6 mo efudex Billing Information: * Procedure Codes: * Electronic signature of Renate Milner PA-C on 09/19/2025 at 03:46 PM STRUCTURAL WORKER Sign off status: Pending * Provider: Alexandra Milner PA-C Date: 12/21/2023 Generated for Robinai ng/Faxing/eTransmitting on: 11/19/2024 03:46 PM STRUCTURAL WORKER
--- OUTSIDE RECORDS SUMMARY | 2024-11-30 04:30 | XMS_ITS ---
Author Organization [facility] Address [address] [place] [address] Care Team Providers Care Bath House Attendant Name Role Phone AlfRuth Unavailable [phone] Mahesh Rosario Unavailable [phone] REASON FOR VISIT 1 wk innova f/u Encounters Encounter Location Date Provider Diagnosis [facility] [address] [address] 11/30/2024 Mahesh Rosario Plan Of Treatment No Information Progress Notes * Nir KRAUSEDOB: [birth year] (70 yo M)Acc No.[id number]:11/30/2024 Progress Notes Patient: Nir Tom Provider: Juan Rosario MD :1955 A ge:69 Y S ex:Male Date:11/30/2024 Address: [facility] [id number] Patient's Default Facility:[facility] Subjective: * Chief Complaints: * 1 wk innova f/u Billing Information: * Procedure Codes: * Electronic signature of Mahesh Rosario MD on 09/19/2025 at 03:47 PM SPLITTING MACHINE TENDER Sign off status: Pending * Provider: Juan Rosario MD Date: 0 11/30/2024 Generated for Printi ng/Faloraineg/eTransmitting on: 1 11/19/2024 03:47 PM SPLITTING MACHINE TENDER
--- OUTSIDE RECORDS SUMMARY | 2025-04-25 04:30 | XMS_ITS ---
Author Organization [facility] Address [address] [place] [address] Care Team Providers Care Social Work Manager Name Role Phone AlfRuth Unavailable [phone] Mahesh Rosario Unavailable [phone] REASON FOR VISIT left frontal scalp Inv SCC, wd Encounters Encounter Location Date Provider Diagnosis [facility] [address] [address] 04/25/2025 Mahesh Rosario Plan Of Treatment No Information Progress Notes * Nir KRAUSEDOB: [birth year] (70 yo M)Acc No.[id number]:04/25/2025 Patient: Stephanie serna Nir Provider: Juan Rosario MD :1955 A ge:69 Y S ex:Male Date:04/25/2025 Address: [facility] [address], [id number] Patient's Default Facility:[facility] Billing Information: * Procedure Codes: * Electronic signature of Mahesh Rosario MD on 09/19/2025 at 03:46 PM EMR IMPLEMENTATION SPECIALIST Sign off status: Pending * Provider: Juan Rosario MD Date: 0 04/25/2025 Generated for Printi ng/Faxing/eTransmitting on: 1 11/19/2024 03:46 PM EMR IMPLEMENTATION SPECIALIST
--- OUTSIDE RECORDS SUMMARY | 2025-04-26 04:30 | XMS_ITS ---
Author Organization [facility] Address [address] [place] [address] Care Team Providers Care Stock Shipper Name Role Phone AlfRuth dooley Unavailable [phone] Mahesh Rosario Unavailable [phone] REASON FOR VISIT left zygoma Encounters Encounter Location Date Provider Diagnosis [facility] [address] [place] [address] 04/26/2025 Mahesh Rosario Plan Of Treatment No Information Progress Notes * Nir KRAUSEDOB: [birth year] (70 yo M)Acc No.[id number]:04/26/2025 Patient: Stephanie hernandezNir shook Provider: Juan Rosario MD :1955 A ge:69 Y S ex:Male Date:04/26/2025 Address: [id number] Patient's Default Facility:[facility] Billing Information: * Procedure Codes: * Electronic signature of Mahesh Rosario MD on 09/19/2025 at 03:46 PM CIRCUIT RIDER Sign off status: Pending * Provider: Juan Rosario MD Date: 0 04/26/2025 Generated for Printi ng/Faxing/eTransmitting on: 1 11/19/2024 03:46 PM CIRCUIT RIDER
--- OUTSIDE RECORDS SUMMARY | 2025-05-02 04:30 | XMS_ITS ---
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 back) Encounters Encounter Location Date Provider Diagnosis [facility] [address] [place] [address] 05/02/2025 Mahesh Rosario Plan Of Treatment No Information Progress Notes * Nir KRAUSEDOB: [birth year] (70 yo M)Acc No.[id number]:05/02/2025 Patient: Stephanie hernandezNir shook Provider: Juan Rosario MD :1955 A ge:69 Y S ex:Male Date:05/02/2025 Address: [facility] [address], [id number] Patient's Default Facility:[facility] * Electronic signature of Mahesh Rosario MD on 09/19/2025 at 03:46 PM TYING MACHINE OPERATOR LUMBER Sign off status: Pending * Provider: Juan Rosario MD Date: 0 05/02/2025 Generated for Printi ng/Faxing/eTransmitting on: 1 11/19/2024 03:46 PM TYING MACHINE OPERATOR LUMBER
[2025-09-18 16:08] LABS: Hematocrit 49.6 % (42.0-52.0); Hemoglobin 16.5 g/dL (14.1-18.0); Immature Granulocytes % 0.2 %; Mean Corpuscular HGB Conc 33.3 g/dL (31.8-35.4); Mean Corpuscular Hemoglobin 29.8 pg (27.0-31.2); Mean Corpuscular Volume 89.7 fl (80-94); Nucleated Red Blood Cells % 0 %; Platelet Count 245 K/mm3 (142-424); Red Blood Count 5.53 M/mm3 (4.60-6.20); Red Cell Distribution Width-SD 45.2 fL; White Blood Count 8.0 K/mm3 (4.8-10.8)
[2025-09-18 18:27] LABS: Alanine Aminotransferase 24 U/L (12-78); Albumin Level 4.6 g/dl (3.5-5.0); Albumin/Globulin Ratio 1.5 (1.1-1.8); Alkaline Phosphatase 79 U/L (38-126); Anion Gap 12.1 mEq/L (5-15); Aspartate Amino Transferase 23 U/L (17-59); Bilirubin,Total 0.7 mg/dl (0.2-1.3); Blood Urea Nitrogen 18 mg/dl (9-20); Calcium 10.1 mg/dl (8.4-10.2); Carbon Dioxide 28 mmol/L (22.0-30.0); Chloride 97 mmol/L (98-107); Cholesterol 221 mg/dl (140-200); Creatinine,Serum 1.00 mg/dl (0.66-1.25); Estimated Glomerular Filt Rate 74 ml/min (>60); GFR (African American) 90 ML/MIN (>60); Globulin 3.1 g/dL (1.3-3.2); Glucose 129 mg/dl (74-100); HDL Cholesterol 57 mg/dl (40-60); Potassium 4.1 mmoL/L (3.5-5.1); Sodium 133 mmol/L (136-145); Total Protein,Serum 7.7 g/dl (6.3-8.2); Triglycerides 134 mg/dl (30-150)
--- OUTSIDE RECORDS SUMMARY | 2025-09-19 16:45 | XMS_ITS | Encounter Summary ---
Author Organization [place] [address] Care Team Providers Care Cloth Spreader Name Role Phone Roderick Dela Cruz MD Unavailable Unavailable Sharan Hardwick MD Primary Care Provider [phone] Encounter Details Date Type Department Care Team (Late st Contact Info) Description 05/04/2009 Orders Only [facility] [place] [address] [place] [address] Uday Negron MD [address] [place] [address] Social History Tobacco Use Types Packs/Day Years Used Date Smoking Tobacco: Never Assessed Sex and Gender Information Value Date Recorded Sex Assigned at Not on file Legal Sex Male 6:29 AM EDT Gender Identity Not on file Sexual Orientation Not on file documented as of this encounter Plan of Treatment Not on file documented as of this encounter Procedures Procedure Name Priority Date/Time Associated Diagnosis Comments NM CARDIOLOGY - HISTORICAL Routine 05/04/2009 12:00 AM EDT documented in this encounter Results * NM CARDIOLOGY - HISTORICAL (05/04/2009 12:00 AM EDT) Anatomical Region Laterality Modality Other 05/04/2009 Narrative 11/12/2011 12:55 PM EST NOTICE: This report was electronically copied on 12/26/2011 from historical data generated by a practice prior to that practice using [facility] for Medical Records. Performing Provider: NEGRON us Uday Negron MD IMG ECHO ORDERABLES Final Result documented in this encounter Visit Diagnoses Not on filedocumented in this encounter Care Teams Cloth Spreader Relationship Specialty Start Date End Date Sharan Hardwick MD [address] [place] [address] [place] [address] PCP - General Internal Medicine 12/07/12 Roderick Dela Cruz MD Physician Internal Medicine-Cardiovascular Disease 05/11/12 documented as of this encounter
--- OUTSIDE RECORDS SUMMARY | 2025-09-19 16:45 | XMS_ITS | Patient Health Record ---
Author Organization [facility] Address [address] [place] [address] Care Team Providers Care Registration Clerk Name Role Phone Ruth Milner Unavailable [phone] Mahesh Rosario Unavailable [phone] Nancy Huerta Unavailable [phone] Allergies No Known Allergies Results Component Value Reference Range Notes Dermatopathology: Kenton horner In-House Histology Lab Reviewed date:10/11/2024 08:20:24 AM Interpretation:Abnormal Performing Lab: Notes/Report: Abnormal Reason For Referral No Information Medications Medication SIG (Take, Route, Fr equency, Duration) Notes Start Date End Date Status urea topical 40% cream 1 jennifer applied top ically to arms and scalp once a day; Duration: 30 days 04/20/2024 Active losartan Active amLODIPine Active chlorthalidone Activ e Social History Tobacco Use: Social History Observation Description Date Details (start date - stop date) Current Smoker NA - NA Social History Drug/Alcohol: Social Info Question Answer Notes AUDIT-C (Standard) Did you have a drink containing alcohol in the past year? Yes How often did you have six or more drinks on one occasion in the past year? 2 to 4 times a month (2 points) How many drinks did you have on a typical day when you were drinking in the past year? 1 or 2 drinks (0 point) How often did you have a drink containing alcohol in the past year? 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, soft tissue, 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 Problem Lentigo (091444402) Lentigo (L81.4) Active confirmed Problem Seborrheic keratosis (88137679) Seborrheic keratosis (L82.1) Active confirmed Problem Eruptive melanocytic nevi (430248548) Benign nevus of skin (D22.9) Active confirmed Problem Vital angioma (4145006) Vital angioma (D18.01) Active confirmed Encounters Encounter Location Date Provider Diagnosis [facility] [address] [address] 09/27/2024 Nancy Huerta Neoplasm of unspecified behavior of bone, soft tissue, and skin D49.2 and Actinic keratosis L57.0 [facility] [address] [address] 11/22/2024 Mahesh [facility] [address] [place] [phone] 10/14/2024 Mahesh Rosario [facility] [address] [address] 11/11/2024 Ruth Milner [facility] [address] [address] 12/06/2024 Mahesh Rosario [facility] [employer] [address] [place] [address] 04/24/2025 Mahesh Rosario Assessments Encounter Date Diagnosis (ICD Code) Assessment Notes Treatment Notes Treatment Clinical Notes Section Notes 09/27/2024 Neoplasm of unspecified behavior of bone, soft tissue, and skin (ICD-10 - D49.2) Undiagnosed new problem with uncertain prognosis. The risks, benefits and potential complications were discussed. Discussed with patient the biopsy process, in that there is an initial stick followed by a burning sensation that subsides with numbness in 5-10 seconds. Patient understands Patient deny any allergy to local anesthesia and consent to the procedure. Results will be available in approximately 2 weeks, however they understand some studies may delay the final report 09/27/2024 Actinic keratosis (ICD-10 - L57.0) Explained that actinic keratoses are precancerous and may have the potential to develop into a malignancy. LN2 was performed to the site(s). After treatment the site may become red and inflamed and then turn a dark brown color and then should peel off in 12 to 14 days. Patient should monitor the areas and return to clinic if the area does not resolve with treatment, or returns, continues to grow, scale, scab or bleed. Acute problem with potential worsening disease progression Plan Of Treatment No Information Insurance Providers Payer Name Payer Address Payer Phone Subscriber Number Group Number Insured Name Patient Relationship to Insured Coverage Start Date Coverage End Date [place] [address] [address] [place] [address] [id number] Nir Sanches Self - patient is the insured [facility] [address] [place] [id number] Nir Sanches Self - patient is the insured Medical (General) History Surgical History Surgery Date(Month/Year) parathyroid lower back 83, 86, 96
--- OUTSIDE RECORDS SUMMARY | 2025-09-19 16:45 | XMS_ITS | Encounter Summary ---
Author Organization [facility] [address] Care Team Providers Care Program Development Manager Name Role Phone Roderick Dela Cruz MD Unavailable Unavailable Sharan Hardwick MD Primary Care Provider [phone] Encounter Details Date Type Department Care Team (Late st Contact Info) Description 05/04/2009 Orders Only [facility] [address] [place] [address] Uday Negron MD [address] [place] [address] Social History Tobacco Use Types [...] Procedure Name Priority Date/Time Associated Diagnosis Comments ECHO - HISTORICAL Routine 05/04/2009 12: 00 AM EDT documented in this encounter Results * ECHO - HISTORICAL (05/04/2009 12:00 AM EDT) Anatomical Region Laterality Modality Other 05/04/2009 Narrative 11/12/2011 12:55 PM EST NOTICE: This report was electronically copied on 12/26/2011 from historical data generated by a practice prior to that practice using [facility] for Medical Records. Performing Provider: NEGRON us Uday Negron MD IMG ECHO ORDERABLES Final Result documented in this encounter Visit Diagnoses Not on filedocumented in this encounter Care Teams Program Development Manager Relationship Specialty Start Date End Date Sharan Hardwick MD [address] [place] [address] [place] [address] PCP - General Internal Medicine 12/07/12 Roderick Dela Cruz MD Physician Internal Medicine-Cardiovascular Disease 05/11/12 documented as of this encounter
--- OUTSIDE RECORDS SUMMARY | 2025-09-19 16:46 | XMS_ITS | Clinical Summary ---
Author Organization [facility] Address [address] [place] [address] Phone Care Team Providers Care Tooth Polisher Name Role Phone Roderick Dela Cruz MD Unavailable Unavailable Sharan Hardwick MD Primary Care Provider [phone] Allergies Active Allergy Reactions Criticality Noted Date Comments Jignesh Inhibitors 06/02/2012 Jignesh induced cough Beta-Blockers (Beta-Adrenergic Blocking Agts) 06/02/2012 Secondary to Bradycardia Medications Carson-3 Fatty Acids-Vitamin E (FISH OIL) 1,000 mg Cap Take by mouth daily. Active Garlic 1 mg Cap Take by mouth. Active selenium 200 mcg Cap Take by mouth. Active Coenzyme Q10 100 mg Cap Take by mouth. Active Cholecalciferol, Vitamin D3, 2,000 unit Cap Take by mouth. Active oxyCODONE (OXY-IR) 30 mg immediate release tablet Take 30 mg by mouth 3 times daily. Active pravastatin (PRAVACHOL) 20 mg Take 20 mg by mouth nightly. Active doxazosin (CARDURA) 8 mg tabletIndication s:HTN (hypertension) Take 1 Tab by mouth daily. 30 Tab 6 12/07/2012 Active cyclobenzaprine (FLEXERIL) 10 mg tablet Take by mouth 2 times daily. Active fluticasone (FLONASE) 50 mcg/actuation nasal spray by Nasal route. Active venlafaxine (EFFEXOR-XR) 150 mg XR capsule Take by mouth daily. Active losartan-hydroch lorothiazide (HYZAAR) 100-25 mg per tablet TAKE ONE TABLET BY MOUTH EVERY DAY Rfs rem none 30 Tab 3 09/22/2013 Active amLODIPine (NORVASC) 10 mg tablet TAKE ONE TABLET BY MOUTH EVERY DAY Rfs rem none 30 Tab 3 09/22/2013 Active Active Problems Problem Noted Date Diagnosed Date Bradycardia 06/02/2012 Hyperlipemia 06/02/2012 HTN (hypertension) 06/02/2012 Social History Tobacco Use Types Packs/Day Years Used Date Smoking Tobacco: Former Alcohol Use Standard Drinks/Week Comments Yes 0 (1 standard drink = 0.6 oz pur e alcohol) occ Sex and Gender Information Value Date Recorded Sex Assigned at Not on file Legal Sex Male 6:29 AM EDT Gender Identity Not on file Sexual Orientation Not on file Last Filed Vital Signs Vital Sign Reading Time Taken Comments Blood Pressure 101/69 06/07/2013 10:16 AM EDT Pulse 114 06/07/2013 10:16 AM EDT Temperature - - Respiratory Rate - - Oxygen Saturation - - Inhaled Oxygen Concentration - - Weight 123.4 kg (272 lb) 06/07/2013 10:16 AM EDT Height 188 cm (6' 2 ) 06/07/2013 10:16 AM EDT Body Mass Index 34.92 06/07/2013 10:16 AM EDT Plan of Treatment Health Maintenance Due Date Last Done Comments Wellness Exam Medicare 1958 Hepatitis C Screening 1974 DTaP/TDaP/Td (1 - Tdap) 1975 Cologuard 2001 Colon Cancer Screening 2001 Colonoscopy 2001 FIT 2001 Sigmoidoscopy 2001 Virtual Colonography 2001 Pneumococcal Vaccine 50+ (1 of 1 - PCV) 2006 Zoster (1 of 2) 2006 COVID-19 Vaccine ( - 2024-2 6 season) 2025 Influenza Vaccine (#1) 2025 Hepatitis B Vaccine Aged Out No longe r eligible based on patient's age to complete this topic Meningococcal B Vaccine Aged Out No l onger eligible based on patient's age to complete this topic Insurance [id number] [place] [address] [place] B [place] Care Teams Tooth Polisher Relationship Specialty Start Date End Date Sharan Hardwick MD [address] [place] [address] [address] [place] [address] PCP - General Internal Medicine 12/07/12 Roderick Dela Cruz MD Physician Internal Medicine-Cardiovascular Disease 05/11/12
--- OUTSIDE RECORDS SUMMARY | 2025-09-19 16:46 | XMS_ITS | Clinical Summary ---
Author Organization [facility] Address [address] [place] [address] Care Team Providers Care Armored Vehicle Officer Name Role Phone CaitlinClarissa metz Primary Care Provider Allergies No known active allergies Medications atenolol (TENORMIN) 100 MG tablet 7 Active losartan-hydrochlor othiazide (HYZAAR) 100-25 MG per tablet 7 Active amLODIPine (NORVASC) 10 MG tablet 7 Active metFORMIN (GLUCOPHAGE) 500 MG tablet 7 Active glipiZIDE (GLUCOTROL) 10 MG tablet 7 Active aspirin 325 MG tablet Take 325 mg by mouth Daily. Active Furman-3 Fatty Acids (FISH OIL) 1000 MG capsule capsule Take 2,000 mg by mouth Daily With Breakfast. Active Garlic 1000 MG capsule Take by mouth. Active aspirin-acetaminoph en-caffeine (EXCEDRIN MIGRAINE) 250-250-65 MG per tablet 7 Active atorvastatin (LIPITOR) 40 MG tabletIndications:H yperlipidemia, unspecified hyperlipidemia type Take 1 tablet by mouth Daily. 90 tablet 1 7 Active Active Problems Problem Noted Date Diagnosed Date Gastroesophageal reflux disease without esophagi tis 01/16/2017 Type 2 diabetes mellitus wit h complication, without long-term current use of insulin 01/16/2017 Essential hypertension 01/16/2017 Hyperlipidemia 01/16/2017 Tobacco abuse 01/16/2017 Family history of prostate cancer 01/16/2017 Urinary frequency 01/16/2017 Cervicalgia 01/16/2017 Immunizations Immunization Administration Dates Next Due Pneumococcal Polysaccharide (PPSV23) 02/20/2017 Family History Medical History Relation Name Comments Cancer Brother brain Cancer Father prostate Heart attack Father Stroke Father Diabetes Mother Hypertension Mother Stroke Mother Relation Name Status Comments Brother Father Mother Alive Social History Tobacco Use Types Packs/Day Years Used Date Smoking Tobacco: Every Day Cigarettes 1 2 Tobacco Cessation:Ready to Q uit: No; Counseling Given: Yes Alcohol Use Standard Drinks/Week Comments Yes 2 (1 standard drink = 0.6 oz pur e alcohol) Abuse Screen Answer Date Recorded Unsafe at Home or Work/School Not on file Feels Threatened by Someone? Not on file 09/2023 Does Anyone Keep You from Co ntacting Others or Doint Things Outside the Home? Not on file 08/19/2023 Physical Sign of Abuse Present Not on file 1 Housing Stability Answer Date Recorded Current Living Arrangements Not on file 08/09 Potentially Unsafe Housing Conditions Not on any e 08/19/2023 Family and Community Support Answer Lico e Recorded Help with Day-to-Day Activities Not on file 08/19/2023 Lonely or Isolated Not on file 08/19/2023 Employment Answer Date Recorded Do you want help finding or keeping work or a venecia b? Not on file 08/19/2023 Disabilities Answer Date Recorded Concentrating, Remembering, or Making Decisions Difficulty Not on file 08/19/2023 Doing Errands Independently Difficulty Not on fi le 08/19/2023 Education Answer Date Recorded Help with school or training? Not on file Preferred Language Not on file 08/19/2023 Sex and Gender Information Value Date Recorded Sex Assigned at Not on file Legal Sex Male 12:24 PM EST Gender Identity Not on file Sexual Orientation Not on file Last Filed Vital Signs Vital Sign Reading Time Taken Comments Blood Pressure 130/70 02/20/2017 9:13 AM EDT Pulse 72 02/20/2017 9:13 AM EDT Temperature 36.8 C (98.2 F) 02/20/2017 9:13 AM EDT Respiratory Rate 24 02/20/2017 9:13 AM EDT Oxygen Saturation - - Inhaled Oxygen Concentration - - Weight 130 kg (286 lb 12.8 oz) 02/20/2017 9:13 A M EDT Height 188 cm (6' 2 ) 02/20/2017 9:13 AM EDT Body Mass Index 36.82 02/20/2017 9:13 AM EDT Plan of Treatment Health Maintenance Due Date Last Done Comments COLOGUARD 2001 COLON CANCER SCREENING 5 YEA R SIGMOIDOSCOPY 2001 CT COLONOGRAPHY 2001 FECAL OCCULT BLOOD TEST 2001 FIT Testing (1 year) 2001 ANNUAL PHYSICAL 01/16/2017 ZOSTER VACCINE (2 of 2) 04/17/2017 02/20/2017 LIPID PANEL 02/20/2018 02/20/2017 Pneumococcal Vaccine 50+ (2 of 2 - PCV) 02/20/2018 02/20/2017 AAA SCREEN ONCE 2021 COLONOSCOPY 05/09/2022 05/09/2012 COLORECTAL CANCER SCREENING 05/09/2022 INFLUENZA VACCINE 06/09/2025 07/10/2016 (Patient-Reported (Performed Externally)) COVID-19 Vaccine (1 - 2023-2 5 season) 2025 TDAP/TD VACCINES (2 - Td or Tdap) 11/09/2025 11/09/2015 (Patient-Reported (Performed Externally)) HEMOGLOBIN A1C Discontinued 02/20/2017 HEPATITIS C SCREENING Completed 02/20/2017 Procedures Procedure Name Priority Date/Time Associated Diagnosis Comments HEMOGLOBIN A1C Routine 02/20/2017 10:11 AM EDT LIPID PANEL Routine 02/20/2017 10:11 AM EDT HEPATITIS C ANTIBODY Routine 02/20/2017 10:11 AM EDT from Last 3 Months or Most Recently Relevant to Health Maintenance Results * Hepatitis C Antibody (02/20/2017 10:11 AM EDT) Hep C Virus Ab 0.1 0.0 - 0.9 s/co ratio [facility] Comment: Negative: < 0.8 Indeterminate: 0.8 - 0.9 Positive: > 0.9 The CDC recommends that a positive HCV antibody result be followed up with a HCV Nucleic Acid Amplification test (355126). 02/20/2017 10:1 1 AM EDT 02/20/2017 Narrative [facility] ([facility]) - 02/21/2017 6:11 AM EDT Performed at: 02 - [facility] [address] [place], [place] [id number] Director Of Cardiac Rehabilitation: Xavier Adhikari PhD, Phone: [phone] Clarissa Tucker DO LAB BLOOD ORDERABLES Final Result Performing Organization Address [facility] de Phone Number [facility] [address] [place] [address], [place] [phone] [facility] [address] [place] [address], [place] [phone] * (ABNORMAL) Hemoglobin A1c (02/20/2017 10:11 AM EDT) Hemoglobin A1C 6.20(H) 4.80 - 5.60 % [facility] 02/20/2017 10:1 1 AM EDT 02/20/2017 [facility] - 02/21/2017 6:11 AM EDT Performed at: [address] [place] [id number] Director Of Cardiac Rehabilitation: Tyler Simon MD, Phone: [phone] Clarissa Tucker DO LAB BLOOD ORDERABLES Final Result Performing Organization Address [facility] Co de Phone Number [facility] [address] [place] [address], [place] [phone] [facility] [address] [place] [address], * (ABNORMAL) Lipid Panel (02/20/2017 10:11 AM EDT) Total Cholesterol 203(H) 0 - 200 mg/dL [facility] Comment: Cholesterol Reference Ranges: Desirable < 200 mg/dL Borderline 200-239 mg/dL High Risk > 239 mg/dL Triglyceride Reference Ranges: Normal < 150 mg/dL Borderline 150-199 mg/dL High 200-499 mg/dL Very High > 499 mg/dL HDL Reference Ranges: Low < 40 mg/dL High > 59 mg/dL LDL Reference Ranges: Optimal < 100 mg/dL Near Optimal 100-129 mg/dL Borderline 130-159 mg/dL High 160-189 mg/dL Very High > 189 mg/dL Triglycerides 261(H) 0 - 150 mg/dL [facility] HDL Cholesterol 36(L) 40 - 60 mg/dL [facility] VLDL Cholesterol 52.2 mg/dL [facility] LDL Cholesterol 115(H) 0 - 100 mg/dL [facility] 02/20/2017 10:1 1 AM EDT 02/20/2017 Narrative [facility] ([facility]) - 02/21/2017 6:11 AM EDT Performed at: [address] [place] [id number] Director Of Cardiac Rehabilitation: Tyler Simon MD, Phone: [phone] Clarissa Tucker DO LAB BLOOD ORDERABLES Final Result [facility] ([facility]) [address] [place] [address], [place] [phone] [facility] [address] [place] [address], [place] [phone] from Last 3 Months or Most Recently Relevant to Health Maintenance Insurance Care Teams Armored Vehicle Officer Relationship Specialty Start Date End Date Clarissa Tucker DO [address] [address] PCP - General Family Medicine 01/16/17
--- OUTSIDE RECORDS SUMMARY | 2025-09-19 16:46 | XMS_ITS | Clinical Summary ---
Author Organization [facility] Address [address] [facility] [address] [place] [address] Phone Care Team Providers Care Maintenance Dispatcher Name Role Phone Destiny BONILLA, [facility] [phone] Conditions or Problems No information available. Medications No information available. Medications Administered No information available. Allergies, Adverse Reactions, Alerts No information available. Results No information available. Plan of Care No information available. Procedures No information available. Vital Signs No information available. Immunizations No information available. Advance Directives No information available.
== END 2025-09-18 23:59 | disposition home or self-care (01) ==
LOC: LAB.DROPOF 09-19 16:44
PROVIDERS: PCP Nurse Practitioner Family; Visit Provider Student in an Organized Health Care Education/Training Program
DX: E78.5 Hyperlipidemia, unspecified (principal); I10 Essential (primary) hypertension; Z12.5 Encounter for screening for malignant neoplasm of prostate
CPT/HCPCS: 80053; 80061; 85025; G0103